=== PATIENT | female | born 1940 | race African-American/Black ===

== ENCOUNTER 2017-10-03 10:30 | Outpatient (RCR) | payer MEDICARE ==
[~2017-10-03 10:30] MED LIST: BENICAR20 MG ORAL; CIPRO500 MG PO; CO Q-10200 MG PO; DILTIAZEM 24HR120 M1 ORAL; FISH OIL500 MG PO; FOLIC ACID0.4 MG ORAL; FUROSEMIDE40 MG ORAL; LIMBREL 500 MG500 MG; MULTIVITAMINS1 EAC8 ORAL; NEXIUM40 MG ORAL; NORMODYNE100 MG ORAL; POTASSIUM CHLO10 ME3 ORAL; RANITIDINE HCL150 MG ORAL; ULTRA-LIGHT RO1 EACH MC
== END 2017-11-01 | disposition home or self-care (01) ==
LOC: PTY 10:30
DX: M25.512 Pain in left shoulder (principal); M25.511 Pain in right shoulder; M25.552 Pain in left hip; M25.551 Pain in right hip; M79.605 Pain in left leg; M79.604 Pain in right leg
CPT/HCPCS: 97110; 97161; G8978; G8979

== ENCOUNTER 2017-11-05 10:09 | Outpatient (RCR) | payer MEDICARE | END 2017-12-01 | disposition home or self-care (01) | LOC: PTY 10:09 | DX: M25.512 Pain in left shoulder (principal); M54.9 Dorsalgia, unspecified | CPT/HCPCS: 97110; G8978; G8979 ==

== ENCOUNTER 2017-12-06 12:15 | Outpatient (RCR) | payer MEDICARE | END 2018-01-01 | disposition home or self-care (01) | LOC: PTY 12:15 | DX: M25.512 Pain in left shoulder (principal); M54.9 Dorsalgia, unspecified | CPT/HCPCS: 97110; G8979; G8980 ==